=== PATIENT | male | born 1975 | race Caucasian/White ===

== ENCOUNTER → 2017-10-27 | Outpatient (CLI) | payer BC ==
[~2017-10-27] MED LIST: HYDR-3237 PO; NAPR500T8 PO; OMEP20TA62 PO
[2017-10-27 11:17] LABS: BASOPHILS # (AUTO) 0.03 x10^3/uL (0-0.1); BASOPHILS % (AUTO) 1 % (0-1); EOSINOPHILS # (AUTO) 0.06 x10^3/uL (0-0.4); EOSINOPHILS % (AUTO) 1 % (1-7); LYMPHOCYTES # (AUTO) 2.05 x10^3/uL (1-3.4); LYMPHOCYTES % (AUTO) 32 % (22-44); MD NO; MEAN CORPUSCULAR HEMOGLOBIN 30.5 pg (27.5-34.5); MEAN CORPUSCULAR VOLUME 89.6 fL (81-97); MEAN PLATELET VOLUME 8.3 fL (7.4-10.4); MONOCYTES # (AUTO) 0.49 x10^3/uL (0.2-0.8); MONOCYTES % (AUTO) 8 % (2-9); NEUTROPHILS # (AUTO) 3.79 x10^3/uL (1.8-6.8); NEUTROPHILS % (AUTO) 59 % (42-75); PLATELET COUNT 241 x10^3/uL (130-400); RED BLOOD COUNT 4.73 x10^6/uL (4.38-5.82); RED CELL DISTRIBUTION WIDTH 13.2 % (9.4-14.8)
[2017-10-27 11:21] LABS: INTERNATIONAL NORMALIZED RATIO 0.96 (0.93-1.1)
[2017-10-27 11:23] LABS: ANION GAP 4 mmol/L (5-15); CALCIUM 8.8 mg/dL (8.5-10.1); CHLORIDE 109 mmol/L (98-107); CREATININE 0.99 mg/dL (0.7-1.3)
== END | disposition home or self-care (01) ==
LOC: STAR 10:11
PROVIDERS: ATTEND Neurological Surgery
DX: Z01.818 Encounter for other preprocedural examination (principal); M48.062 Spinal stenosis, lumbar region with neurogenic claudication
CPT/HCPCS: 36415; 71046; 80048; 85025; 85610; 85730; 93005

== ENCOUNTER 2017-11-05 05:55 | Inpatient (IN) | payer BC ==
[~2017-11-05] VITALS: Ht 193 cm; Wt 148.5 kg
[2017-11-05] MEDS ORDERED: LACTATED RINGERS 1,000 ML IV SCH (07:03)
[2017-11-05 07:05] VITALS: BP 131/87
[2017-11-05] MEDS ORDERED: ACETAMINOPHEN 500 MG TABLET PO ONE (10:30)
[2017-11-05] MEDS ORDERED: OxyconTIN ER 20 MG TAB.ER PO ONE (10:30)
[2017-11-05] MEDS ORDERED: FAMOTIDINE 20 MG TABLET PO ONE (10:30)
[2017-11-05] MEDS ORDERED: GABAPENTIN 300 MG CAPSULE PO ONE (10:30)
[2017-11-05] MEDS ORDERED: MIDAZOLAM 1 MG/ML, 2ML ONE (10:32)
[2017-11-05] MEDS ORDERED: FENTANYL PF 250 MCG/5ML ONE (10:33)
[2017-11-05] MEDS ORDERED: PROPOFOL 100 ML ONE (10:33)
[2017-11-05] MEDS ORDERED: THROMBIN 5,000 UNIT VIAL TP ONE (11:17)
[2017-11-05] MEDS ORDERED: BACITRACIN 50,000 UNIT ONE (11:17)
[2017-11-05] MEDS ORDERED: BUPIVACAINE/PF-EPI 0.5% 1:200K ONE (11:17)
[2017-11-05] MEDS ORDERED: CEFAZOLIN 1,000 MG ONE ×2 (11:28)
[2017-11-05] MEDS ORDERED: ROCURONIUM 10 MG/ML,10ML ONE (11:30)
[2017-11-05] MEDS ORDERED: DEXAMETHASONE 4 MG/ML, 1ML ONE ×2 (11:38)
[2017-11-05] MEDS ORDERED: PROMETHAZINE 25 MG/ML, 1ML IV PRN (12:30)
[2017-11-05] MEDS ORDERED: MEPERIDINE/PF 25MG/0.5ML IVPush PRN (12:30)
[2017-11-05] MEDS ORDERED: LABETALOL 5MG/ML, 20ML IV PRN (12:30)
[2017-11-05] MEDS ORDERED: OXYcodone 5 MG/5 ML ORAL.SOL UDC PO PRN (12:30)
[2017-11-05] MEDS ORDERED: hydrALAzine 20 MG/ML, 1ML IV PRN (12:30)
[2017-11-05] MEDS ORDERED: HYDROmorphone 2 MG/ML, 1ML IV PRN (12:30)
[2017-11-05] MEDS ORDERED: ONDANSETRON 2MG/ML, 2ML IV PRN ×2 (12:30→16:00)
[2017-11-05] MEDS ORDERED: PROPOFOL 10 MG/ML, 20ML ONE ×3 (13:27→13:28)
[2017-11-05] MEDS ORDERED: ONDANSETRON 2MG/ML, 2ML ONE ×2 (13:33→13:37)
[2017-11-05] MEDS ORDERED: OXYcodone 5 MG/5 ML ORAL.SOL UDC ONE (14:25)
[2017-11-05] MEDS ORDERED: FENTANYL PF 100 MCG/2ML ONE (14:25)
[2017-11-05] MEDS: FENTANYL PF 100 MCG/2ML IV PRN ×2 (14:26→14:39)
[2017-11-05] MEDS ORDERED: DIAZEPAM 5 MG/ML, 2ML IV PRN ×2 (16:00→16:01)
[2017-11-05] MEDS ORDERED: PROMETHAZINE 25 MG/ML, 1ML IM PRN (16:00)
[2017-11-05] MEDS ORDERED: DIAZEPAM 5 MG TABLET PO PRN ×2 (16:00→16:01)
[2017-11-05] MEDS ORDERED: HYDROcodone/APAP 5/325 TABLET PO PRN (16:00)
[2017-11-05] MEDS ORDERED: METHOCARBAMOL 750 MG TABLET PO PRN (16:00)
[2017-11-05] MEDS ORDERED: DIPHENHYDRAMINE 50 MG/ML, 1ML IVPush PRN (16:00)
[2017-11-05] MEDS ORDERED: BISACODYL 10 MG SUPP PR PRN (16:00)
[2017-11-05] MEDS ORDERED: DIPHENHYDRAMINE 50 MG/ML, 1ML IM PRN (16:00)
[2017-11-05] MEDS ORDERED: MAGNESIUM HYDROXIDE 8%, 30ML UDC PO PRN (16:00)
[2017-11-05] MEDS ORDERED: HYDROmorphone 2MG TABLET PO PRN (16:30)
[2017-11-05] MEDS ORDERED: HYDROmorphone 2 MG/ML, 1ML IM PRN (16:30)
[2017-11-05] MEDS ORDERED: CEFAZOLIN PMX 1GM/50ML 50 ML IVPB SCH (17:00)
[2017-11-05] MEDS: NS + 20MEQ KCL 1,000 ML IV SCH (18:40)
[2017-11-05 18:54] VITALS: BP 146/84
[2017-11-05] MEDS: CEFAZOLIN PMX 1GM/50ML 50 ML IVPB SCH (19:42)
[2017-11-05] MEDS ORDERED: ZOLPIDEM 5MG TABLET PO PRN (21:00)
[2017-11-06] MEDS: NS + 20MEQ KCL 1,000 ML IV SCH ×2 (01:39→16:42)
[2017-11-06 02:44] VITALS: BP 150/82
[2017-11-06] MEDS: CEFAZOLIN PMX 1GM/50ML 50 ML IVPB SCH (03:21)
[2017-11-06] MEDS: OXYcodone/APAP 5/325MG TABLET PO PRN ×5 (03:24→20:23)
[2017-11-06] MEDS: OMEPRAZOLE 20 MG CAPSULE.DR PO SCH (07:01)
[2017-11-06 07:30] VITALS: BP 136/65
[2017-11-06] MEDS: SENNA/DOCUSATE TABLET PO SCH (07:40)
[2017-11-06] MEDS ORDERED: OXYC-302 PO (08:56)
[2017-11-06] MEDS ORDERED: METH750T87 PO (08:56)
[2017-11-06 13:12] VITALS: BP 125/65
[2017-11-06] MEDS: DIPHENHYDRAMINE 50 MG CAPSULE PO PRN ×2 (15:10→20:23)
[2017-11-06] MEDS: METHOCARBAMOL 750 MG TABLET PO SCH (16:28)
[2017-11-06 19:33] VITALS: BP 123/62
[2017-11-07] MEDS: METHOCARBAMOL 750 MG TABLET PO SCH ×2 (00:48→08:07)
[2017-11-07] MEDS: OXYcodone/APAP 5/325MG TABLET PO PRN ×3 (00:49→10:11)
[2017-11-07 00:54] VITALS: BP 106/66
[2017-11-07] MEDS: NS + 20MEQ KCL 1,000 ML IV SCH (05:12)
[2017-11-07 07:12] VITALS: BP 122/74
[2017-11-07] MEDS: SENNA/DOCUSATE TABLET PO SCH (08:07)
[2017-11-07] MEDS: OMEPRAZOLE 20 MG CAPSULE.DR PO SCH (08:07)
== END 2017-11-07 10:34 | disposition home or self-care (01) | DRG 517 ==
LOC: OUT 05:55 → 4NOR 15:41 → OUT 15:43 → 4NOR 15:44
PROVIDERS: ADMIT Neurological Surgery; ATTEND Neurological Surgery
PROC: 01NB0ZZ Release Lumbar Nerve, Open Approach (ICD-10-PCS; principal; 2017-11-05 11:30)
DX: M47.896 Other spondylosis, lumbar region (principal); M51.16 Intervertebral disc disorders with radiculopathy, lumbar region; M48.062 Spinal stenosis, lumbar region with neurogenic claudication
CPT/HCPCS: 72100; J0690; J1100; J1170; J2250; J2405; J2704; J3010; J3480; J7120